=== PATIENT | female | born 1950 | race Caucasian/White ===

== ENCOUNTER → 2020-11-04 09:08 | Outpatient (CLI) | payer MEDICARE, SELFPAY ==
[2020-11-04 11:35] LABS: COVID19 -Nasal RAPID Negative (Negative)
== END ==
PROVIDERS: Referring Provider Physician Assistant; Visit Provider Physician Assistant
DX: Z01.812 Encounter for preprocedural laboratory examination (principal); Z20.822 Contact with and (suspected) exposure to COVID-19
CPT/HCPCS: 87635

== ENCOUNTER 2020-11-06 09:26 | Inpatient (IN) | payer MEDICARE, OTHER, SELFPAY ==
[2020-10-31 15:27] VITALS: BMI 28.1
[2020-11-06] VITALS (23 sets, daily range): BP systolic 110–147; BP diastolic 58–81; PULSE 61–84; RESP 8–22; TEMP 36.3–36.9; O2SAT 84–100; BMI 28.1
[2020-11-06] MEDS: LACTATED RINGERS 1,000 ML 42 ML IV ×2 (06:53→09:47)
--- NOTE | 2020-11-06 07:40 | PM.PREOP ---
Pre-operative Note COVID-19 COVID-19 status: Negative Result date/Date tested (Pos, Neg/Pending): 11/04/20 Interval Note History & Physical reviewed/Exam performed by Physician: Yes Changes to H&P: No
[2020-11-06] MEDS: CEFAZOLIN 1 GM VIAL 2 GM IV ×2 (07:50→16:19)
--- NOTE | 2020-11-06 08:33 | SUR.OPER ---
Prone on spine table, head in foam head support, padded chest and pelvic supports, gel pad at knees, lower legs supported by pillows; nipples, genitalia and toes free of pressure, arms secured on foam padded arm boards at <90 degrees abduction. Tape over blanket at thigh secured to table.
[2020-11-06] MEDS: BUPIVACAINE LIPOSOME 266 MG/20 ML VIAL INJ (08:39)
[2020-11-06] MEDS: BUPIVACAINE 0.25% (PF) VIAL 30 ML INJ (08:42)
[2020-11-06] MEDS: EPINEPHrine 1 MG/ML SUBCUT (08:43)
--- NOTE | 2020-11-06 12:15 | P.OP_ITS ---
Operative Date/Time/Diagnoses Date of procedure: 11/06/20 Time of procedure: 07:50 Pre-op diagnosis: 1. L3-4, L4-5, L5-S1 spinal stenosis 2. Hx of L5-S1 fusion with instrumentation 3. Lumbar scoliosis Post-op diagnosis: same Procedure & Clinicians Procedure: 1. L3-4, L4-5 posterolateral and posterior interbody fusion 2. L3-4, L4-5 posterior interbody cage placement 3. L5-S1 posterior non-segmental instrumentation removal 4. L5-S1 revision laminectomy with exploration of fusion 5. L3-4, L4-5, L5-S1 posterior segmental instrumentation with pedicle screw placement 6. L5-S1 posterolatearl fusion 7. [place] of bone marrow from iliac crest through a separate incision 8. Utilization of microsurgical technique and operating microscope Same procedure as scheduled: Yes Indications: Patient has been having chronic back pain and worsening lumbar radiculopathy. Patient had previously performed L5-S1 fusion surgery with retained hardware. Patient failed multiple conservative management with worsening pain weakness and numbness in her lower extremity. Patient has been having difficulty performing activity of daily living. After discussing risks benefits of treatment options, patient elected proceed with surgery. Surgeon: Dirk Enciso Cardiac Cath Lab Technologist: Jose L Kate Click Yes if Unassisted: No Anesthesia Type: General Operative Notes Closure Type: primary Specimen(s): none sent Prosthetic devices, grafts, tissues, transplants, or devices: Globus revolve screws, Rise cages Applied: catheter Estimated Blood Loss (mL): 200 Procedure in detail: Patient was seen in the preoperative area. Risks and benefits of the surgery was discussed with the patient. Informed consent was obtained from the patient and placed in the chart. Surgical site was marked. Patient was taken to the operative room. General anesthesia was administered. Prophylactic antibiotic was given to the patient less than 30 min before the incision was made. Patient was placed into a prone position on the Erik table. Patient's back was then prepped and draped in the sterile fashion. Time- out was performed at this time. Using patient's previous scar incision was made over theL3-4, L4-5, L5-S1 interval on the Left side. Fascia was incised in line with skin incision. Patient's previously placed hardware over the L5-S1 level was identified by dissecting down to the level the hardware using a Bovie and a Joiner. The locking caps which was removed using globus screwdriver. The locking saeed was then removed from the [place] of the pedicle screws using a Carolyn. The pedicle screws were then removed using the screwdriver. The screws were found to have good purchase. The Globus and MARS retractors was then placed into the wound and docked onto the L3 and L4 lamina using C-arm guidance. Using microsurgical technique and operating microscope a laminectomy facetectomy was performed by removing the L3 and L4 lamina and the L3-4 L4-5 facet. The disc space at L3-4 L4-5 level was identified next. And a total diskectomy was performed at L3-4 L4-5 level. The endplates were decorticated using a rasp and shaver. The total diskectomy and decortication was performed at L3-4 L4-5 level in order to to accomplish a L3-4 L4-5 fusion. The local bone from the laminectomy and facetectomy was saved for local bone grafting. After the total diskectomy and decortication was completed, Trifecta bone graft material was combined with local bone that was harvested earlier. At this time, a separate skin is incision was made over the iliac crest. A Jamshidi needle was inserted into the iliac crest through a separate skin incision. 5 cc of bone marrow aspiration was obtained through the separate skin incision using a Jamshidi needle from the iliac crest. The bone marrow aspiration was combined with local bone and the Trifecta bone grafting m aterial. The bone grafting material was placed into the L3-4, L4-5 interbody space along with a expandable cage. The cage was expanded to its maximum height using the torque limiting screwdriver. At this time a mirror image incision was made on the right side. The fascia was incised in line with the skin incision. Patient's previously placed hardware on the left side was then removed in the same fashion as it was on the right side. The hardware was also found to have good purchase. The fusion mass on the right side was exposed by performing a right-sided hemilaminectomy at L5-S1 level. The hemilaminectomy was performed using the Kerrison rongeur to undercut the lamina as well removing additional epidural scar tissue for purpose of decompressing the epidural space. The fusion mass was explored and was found have visible motion indicating pseudoarthrosis. Globus MARS retractor was inserted and docked onto the L3-4 L4-5 L5-S1 posterolateral gutter. Using the power drill, posterior-lateral decortication was performed at L3-4 L4-5 L5-S1 level until bleeding cortical bone was identified. The remaining bone grafting material was placed into the L3-4 L4-5 L5-S1 posterior lateral gutter he order to accomplish posterolateral fusion at the L3-4 L4-5 L5-S1 level. Using the double C-arm technique, pedicle screws were placed into the L3-L4 L5 and S1 pedicles bilaterally. The right-sided S1 screw was not placed since there was concern for potentially pulling out the right S1 screw due to patient's curvature. Patient's construct was stable at the end of the procedure after all hardware was placed. This was done by placing the Jamshidi needle into the pedicles, then placing the guidewires over the Jamshidi needle, and finally placing the cannulated screws over the guidewires bilaterally. After the pedicle screws were placed, 2 titanium rods was locked into the heads of the pedicle screws using locking caps and torque limiting screwdriver. After all the hardware was placed, and confirmed with AP and lateral C-arm imaging, the wound was then irrigated with sterile normal saline and packed with Ray-Fabrice gauze for 3 min to accomplish hemostasis. After the gauze was removed the deep fascia was closed with #1 Vicryl suture. The subcutaneous layer was closed with 2-0 Vicryl. The skin was closed with skin ama. Patient tolerated the procedure well. There were no complications. Complications: none Post-operative Condition: stable Disposition: PACU Plan for aftercare: Admit to inpatient hospital
--- NOTE | 2020-11-06 12:16 | DI.RAD.S_ITS ---
PROCEDURE: XR LUMBAR SPINE 2-3V INDICATIONS: L3-4, L4-5 TLIF TECHNIQUE: 3 intraoperative fluoroscopic views of the lumbar spine were acquired. COMPARISON: [facility], , XR LUMBAR SPINE 2 OR 3 VIEWS, 07/14/2020, 9:47. FINDINGS: Intraoperative fluoroscopic images of lumbar spine shows transpedicular fusion hardware extending from L3 through S1 levels with intervertebral spacer placement at L3-4 and L4-5 levels. IMPRESSION: Fluoro guidance was provided intraoperatively for lower lumbar spine fusion. Dictated by: Isiah Osullivan M.D. on 11/06/2020 at 13:06 Approved by: Isiah Osullivan M.D. on 11/06/2020 at 13:08
[2020-11-06] MEDS: fentaNYL 100 MCG/2 ML INJ IV ×2 (12:50→13:07)
[2020-11-06] MEDS: HYDROMORPHONE 2 MG INJ IV (12:58)
[2020-11-06] MEDS: OXYCODONE/ACETAMINOPHEN 5/325 TABLET 1 TAB PO (13:44)
--- NOTE | 2020-11-06 14:15 | SUR.PHASEI ---
Pt transfered in bed with ananya RN to 210. SBAr report at bedside to Lilian RN with dressing eval. at bedside. Bed in low position and locked. Call light in reach. Oxygen via NC at 3L.
--- NOTE | 2020-11-06 15:02 | PC.NURSE ---
Pt arrived to unit at 1355, settled in to room. Able to answer most questions appropriately. VSS, afebrile on 2 LNC initially,Pt able to roll side to side with assistance. +CMS normal sensation to BLE's and feet wiggling toes. at bedside. Pt denies wanting jello or crackers. LR at 100ml /hr. Incision with guaze dressing CDI. Some redness to B illiac crest blanchabe and per PACU nurse, much smaller since arriving to unit. RT demonstrating IS to patient, weaned to 1 Liter. Slightly lethargic but awakens easily.
[2020-11-06] MEDS: SODIUM CHLORIDE 0.9% 1,000 ML 100 ML IV (16:19)
--- NOTE | 2020-11-06 16:44 | PT-IP ANOTE ---
Attempted to see patient, per RN, pt not appropriate for PT at this time. High levels of confusion at the moment.
[2020-11-06] MEDS: levETIRAcetam 250 MG TABLET 500 MG PO (21:45)
[2020-11-06] MEDS: DOCUSATE 100 MG CAPSULE PO (21:45)
[2020-11-06] MEDS: SENNOSIDES 8.6 MG TABLET 17.2 MG PO (21:46)
--- NOTE | 2020-11-06 23:41 | PC.NURSE ---
A & O X1; impulsive; pt removed IV;trying to get out of bed; drsg change with [place] to lower back; RA=94%; Canas draining to gravity; Pt reports pain, and grimaces but this RN did not administer pain medication because patient fell asleep
[2020-11-07] VITALS (8 sets, daily range): BP systolic 107–120; BP diastolic 60–75; PULSE 79–94; RESP 14–18; TEMP 36.7–37.7; O2SAT 95–97
[2020-11-07] MEDS: CEFAZOLIN 1 GM VIAL 2 GM IV (00:03)
[2020-11-07] MEDS: OXYCODONE IR 5 MG TABLET 10 MG PO ×5 (00:34→19:27)
--- NOTE | 2020-11-07 02:14 | PC.NURSE ---
Patient found after shift change to be crawling out of bed. Insisted she had to use the bathroom but denied having to have BM and not able to understand that she had catheter. Had taken catheter securement device off leg. Not easily redirectable initially but eventually did lie back down. Now being monitored 1:1 due to impulsive behavior and forgetfulness. Was oriented except to day of month and her age. [place] bilaterally but only has hearing aid in left ear; states right hearing aid went missing prior to hospitalization. Breath sounds CTA with RA sat of 95%. HRR. Denied nausea. BT present but denied having passed flatus. Indwelling catheter is patent; urine is clear yellow. Able to move self in bed but is not adhering to back precautions. Has not yet been out of bed so gait not assessed. Dressing to back is intact with spots of shadow drainage. States she has tingling in both feet and feet feel cool to touch; good capillary refill. Wearing bilateral foot SCD's. Initially stated pain was 5/10 and declined pain meds but later stated pain up to 8/10 and was medicated with Oxycodone. Ice pack applied but patient would not leave it in place. Fall risk score is high and bed alarm is on as well as having continued 1:1 monitoring.
[2020-11-07] MEDS: hydrOXYzine pamoate 25 MG CAPSULE PO (03:45)
[2020-11-07] MEDS: SODIUM CHLORIDE 0.9% 1,000 ML 100 ML IV (05:00)
[2020-11-07 06:16] LABS: Hematocrit 30.2 % (36-46); Hemoglobin 10.1 g/dL (12.0-16.0)
[2020-11-07] MEDS: ACETAMINOPHEN 325 MG TABLET 650 MG PO ×2 (08:52→14:30)
[2020-11-07] MEDS: DOCUSATE 100 MG CAPSULE PO ×2 (08:53→21:16)
[2020-11-07] MEDS: levETIRAcetam 250 MG TABLET 500 MG PO ×2 (08:54→21:16)
[2020-11-07] MEDS: MULTIVITAMIN 1 TABLET 1 TAB PO (08:54)
[2020-11-07] MEDS: GABAPENTIN 300 MG CAPSULE PO (08:54)
[2020-11-07] MEDS: FUROSEMIDE 40 MG TABLET PO (08:56)
--- NOTE | 2020-11-07 10:40 | PT.IIE ---
Current Diagnoses Other secondary scoliosis, lumbar region (11/06/20) Spondylolisthesis, lumbar region (11/06/20) Spinal stenosis, lumbar region without neurogenic claudication (11/06/20) Arthrodesis status (11/06/20) Surgery Performed Operation Date: 11/06/20 07:45 Actual Procedures p L2-3,L3-4,L4-5 TLIF,L5-S1 lumbar HWR,exploration of fusion,repeat laminectomy,reinsertion of hardware(Not Applicable) - Dirk Enciso MD Medical History (Last Reviewed 11/07/20 @ 11:56 by Allan Herrera PA-C) Acid reflux Anxiety Arthritis Asthma Chest pain Depression DJD (degenerative joint disease) DVT (deep venous thrombosis) Fall from ground level (10/26/20) Hearing impaired Hypokalemia Irregular heartbeat Kidney stones Lung cancer (~2015) Osteoporosis Seizures Spinal stenosis Physical Therapy Inpatient Evaluation/Re-Eval M1 PT/OT-IP Prior Functional Status Start: 11/07/20 12:21 Freq: NEEDED Status: Active Protocol: Document 11/07/20 10:40 AB (Rec: 11/07/20 12:34 AB [id number]) Medical Review Prior Functional Status Medical History Reviewed Yes Communication able to make needs known but with confusion Mobility and Gait spouse stated that pt is modified independent with all mobilities and ambulation without AD but occasionally uses walker with 4 wheels(FWW into 4WW) depending on pain Social History Household Members spouse Living Arrangements Apartment/Condo Number of Floors (Floors) 3 or More Floors Number of Stairs To Enter/Railing? no steps to enter 4 steps with B rails to get to living room /dining area + 10 steps B rails to get to bedroom level Home Environment High Toilet,Walk in Shower Home Equipment Four Wheel Walker,Shower Seat with Backrest Additional Social History Comment pt has a FWW that was made into a 4WW and spouse stated that he can switch the legs back to be a FWW again M2 PT-IP Current Condition Start: 11/07/20 12:21 Freq: NEEDED Status: Active Protocol: Document 11/07/20 10:40 AB (Rec: 11/07/20 12:34 AB [email or web address]) Physical Therapy Current Condition Current Condition Evaluation Date 11/07/20 Treatment Diagnosis s/p L3-S1 fusion; difficulty in walking Onset Date 11/06/20 Precautions Lumbar Precautions Log Roll,No Twisting,Limit Bending,Lifting Restriction of 10 lbs,Gait Belt above Incisional Area Other Precautions falls M3 PT-IP Subjective Start: 11/07/20 12:21 Freq: NEEDED Status: Active Protocol: Document 11/07/20 10:40 AB (Rec: 11/07/20 12:34 AB [id number]) Subjective Physical Therapy Visit Type Type Initial Evaluation Visit Start Time 10:40 Visit Stop Time 11:20 Total Visit Minutes 40 Number of IT AUDITOR Visits 0 Physical Therapy Visit Comments Patient Comments agreeable to do PT; spouse in room with pt Therapy Pain Assessment Pain When Pain Assessed At Rest Pain Present Pain Present Pain Reported Location Back Intensity 4 Scale Used Numeric (0 - 10) Pain Management Techniques Apply Cold,Modification of Treatment,Re-positioning, Timing of Activity with Medications M4 PT-IP Mobility and Gait Start: 11/07/20 12:21 Freq: NEEDED Status: Active Protocol: Document 11/07/20 10:40 AB (Rec: 11/07/20 12:34 AB [email or web address]) PT-Bed Mobility Assessment Rolling Type of Rolling Log Rolling Level of Assist Maximal Assistance Supine to Sit Supine to Sit Maximum Assistance PT-Transfer Assessment Sit to and From Stand Sit to and from Stand Moderate Assistance,1 Person Assistance,Use of Upper Extremities Equipment Transfer Assistive Device Gait Belt,Front Wheeled Walker Orthotic/Prosthetic Devices or Brace: No Transfers Transfer Destination Chair Transfer Technique ambulated using FWW Transfer Ability Level of Assist Moderate Assistance,1 Person Assistance,Use of Upper Extremities Comments Mobility Comments educated pt regarding back precautions and log roll bed mobility. spouse in room with pt. pt completed supine to sit log roll max A and max cues x 3 attempts. pt with difficulty following directions and c/o increase back pain. pt was able to sit on EOB CGA. completed sit to stand mod A and cues and ambulated to the chair using FWW mod A. agreed to ambulate again after resting requiring min to mod A using FWW ~ 30 ft. pt agreed to sit up on chair. positioned on chair. call light and table placed within reach. chair alarm on. set up 1pm caregiver training later today. Gait Assessment Gait Gait Assistance Required: Minimum Assistance,Maximum Assistance Distance (Feet) 30 Able to Maintain Weight Bearing Status Yes During Gait Assistive Devices Assistive Device Gait Belt,Front Wheeled Walker Orthotic/Prosthetic Devices or Brace: Yes Gait Deviations General Gait Pattern Antalgic,Decreased Feet Clearance Factors Limiting Gait Function Factors Limiting Gait Function Decreased Activity Tolerance, Decreased Strength,Difficulty Following Directions,Limited Range of Motion,Pain,Poor Balance,Poor Safety Awareness PT-Balance Assessment Sitting Balance and Reactions Static Sitting Balance Ability Good Dynamic Sitting Balance Ability Fair Standing Balance and Reactions Static Standing Balance Ability Fair Dynamic Standing Balance Ability Fair Device Used FWW M5 PT-IP Objective Assessments Start: 11/07/20 12:21 Freq: NEEDED Status: Active Protocol: Document 11/07/20 10:40 AB (Rec: 11/07/20 12:34 AB [email or web address]) Orientation Orientation/Cognition Level of Alertness Alert Orientation Name,Place,Situation Safety Awareness Decreased Safety Awareness Memory Description Short Term Impaired Gross Range of Motion Lower Extremity ROM Assessment Within Functional Limits Strength Lower Extremity Strength Hip 3+/5 Knee 3+/5 Muscle Tone Muscle Tone WNL Yes M6 PT-IP Treatment Start: 11/07/20 12:21 Freq: NEEDED Status: Active Protocol: Document 11/07/20 10:40 AB (Rec: 11/07/20 12:34 AB [email or web address]) Physical Therapy Treatment Education Education Provided Precautions,Weight Bearing Status,Post-Op Packet,Safety M7 PT-IP Assessment and Plan Start: 11/07/20 12:21 Freq: NEEDED Status: Active Protocol: Document 11/07/20 10:40 AB (Rec: 11/07/20 12:34 AB [email or web address]) PT Summary Assessment and Plan Potential Rehabilitation Potential Good Status of Condition at Evaluation Evolving Summary Impairments Pain,ROM,Strength,Balance, Coordination,Sensation,Tone, Cognition,Bed Mobility, Transfers,Gait,Activity Tolerance Assessment Summary pt requiring max A with bed mobility and min to mod with ambulation using FWW. pt with slight confusion with difficulty following directions affecting mobility and safety awareness. caregiver trianing set up for 1pm later today. will continue to assess progress. Goals Bed Mobility Goal Standby Assistance Transfer Goal Standby Assistance,Front Wheeled Walker Gait Goal Standby Assistance,Front Wheel Walker Gait Distance 150 Other Goals up/down 14 steps B rails SBA Days to Meet Goals 5 Frequency of Treatment Frequency Of Treatment Twice a Day Treatment Plan Physical Therapy Treatment Plan Bed Mobility Training,Transfer Training,Gait Training, Therapeutic Exercise,Balance Retraining,Post Op Education, Discharge Planning,Hot or Cold Pack,Neuromuscular Re-ed, Coordination Retraining,Manual Therapy Other Recommendations and Next Treatment caregiver training 1 pm 11/07 Focus Precautions Lumbar Precautions Log Roll,No Twisting,Limit Bending,Lifting Restriction of 10 lbs,Gait Belt above Incisional Area Recommendations To Nursing Amount of Assist Needed 1 Person Assist Discharge Recommendations PT Discharge Recommendations Home with 02/12 Assist Available,Home Health Transportation Needs at Discharge Private Vehicle
--- NOTE | 2020-11-07 10:45 | CM.DANOTE ---
DCP: Case received, EMR reviewed and met with patient. , Aquiles, was at bedside. Introduced self and role. Was able to obtain information from patient and spouse regarding her baseline activity level at home prior to her surgery. DCP assessment completed with information currently available. Patient is a 70 year old female who admitted yesterday morning to the care of the orthopedic team. PCP: Dr. Ritter at [facility]. Payer: confirmed: Medicare/[employer]. Patient came to the hospital via private vehicle for a surgical procedure. She had back surgery which consisted of L3-4, L4-5 posteolateral and posterior interbody fusion. Patient has history of spinal stenosis as well as scoliosis of the lumbar region. Met with patient and , Binh, in the room. She was laying in bed, somewhat flat effect, but spouse indicated that she is hard of hearing. Confirmed that she and spouse reside in [place]. Patient does not drive, and uses a FWW at home. They have 14 stairs that she needs to navigate when she goes home, but spouse indicated. they really want her home. Patient did answer some questions, but had to repeat, as she is hard of hearing, and at times, had to look at her to help answer questions. Asked patient if she does any meal prep at home, and she indicated that her spouse does all of the cooking, and some resident caregiver. They do have some children, one is in [place], other lives in [place]. Patient has not yet worked with P.T, and in addition, will need stair training. P: DCP to continue to follow, and will see how she does with P.T. Mila Mueller RN/Credit Support Counselor
[2020-11-07] MEDS: SERTRALINE 50 MG TABLET PO (11:47)
--- NOTE | 2020-11-07 11:54 | PM.PNPO.1 ---
Subjective Subjective Date Patient Seen: 11/07/20 Time Patient Seen: 07:35 Interval history: Patient's pain is moderate. Denies fever or chills. No shortness of breath or chest pain. She is otherwise without complaints this morning. Exam Vital Signs (past 8 hours): - 11/07/20 04:39 11/07/20 09:00 Temperature 98.3 F 99.0 F Pulse Rate 87 83 Respiratory Rate 14 16 Blood Pressure 116/68 117/62 Oxygen Delivery Method Room Air Oxygen Flow Rate 0 Narrative Exam Narrative: Pleasant 70-year-old female resting comfortably in bed in no apparent distress. There is a moderate amount SS drainage and the dressing is rolled up. Sensation grossly intact bilateral lower extremities. Neurovascular status is otherwise intact bilateral lower extremities. Eyes General: appearance normal, both eyes and all related structures Objective Labs Result Diagrams: 11/07/20 05:49 Labs: Laboratory Results - last 24 hr 11/07/20 05:49 Hgb 10.1 L Hct 30.2 L PFSH Medical History Acid reflux Anxiety Arthritis Asthma Chest pain Depression DJD (degenerative joint disease) DVT (deep venous thrombosis) Fall from ground level (10/26/20) Hearing impaired Hypokalemia Irregular heartbeat Kidney stones Lung cancer (~2015) Osteoporosis Seizures Spinal stenosis Surgical History History of arthroplasty of left shoulder (2017) History of arthroplasty of right knee (01/11/20) History of removal of Port-a-Cath Hx of craniotomy (~2015) Hx of lumbosacral spine surgery (2002) Hx of splenectomy (2013) Social History household members: spouse and children Smoking Status: Current every day smoker alcohol intake: never Assessment & Plan Post-op Postoperative Procedures: Procedures Operation Date: 11/06/20 07:45 Actual Procedure Side Surgeon p L2-3,L3-4,L4-5 TLIF,L5-S1 lumbar HWR,exploration of fusion,repeat laminectomy,reinsertion of hardware Not Applicable Dirk Enciso MD Postoperative day: 1 Postoperative status: other (Stable) Postoperative status narrative: Patient progressing as expected status post lumbar fusion. Mobilize with physical therapy. Continue work on pain control. Limit bending, twisting, lifting. Canas catheter and placed and will be DC. Physical therapy attempted treatment yesterday evening however patient was determined to be confused and not appropriate for PT at this time. She has not received PT yet this morning. Disposition likely 1-2 days home versus assisted facility. Postoperative plan: routine post-op care Time Spent With Patient Time with patient: less than 15 minutes Quality VTE Deep Vein Thrombosis/Pulmonary Embolism Present on Admission: No
--- NOTE | 2020-11-07 13:20 | PT.IPTN ---
Current Diagnoses Other secondary scoliosis, lumbar region (11/06/20) Spondylolisthesis, lumbar region (11/06/20) Spinal stenosis, lumbar region without neurogenic claudication (11/06/20) Arthrodesis status (11/06/20) Surgery Performed Operation Date: 11/06/20 07:45 Actual Procedures p L2-3,L3-4,L4-5 TLIF,L5-S1 lumbar HWR,exploration of fusion,repeat laminectomy,reinsertion of hardware(Not Applicable) - Dirk Enciso MD Physical Therapy Treatment Note M2 PT-IP Current Condition Start: 11/07/20 12:21 Freq: NEEDED Status: Active Protocol: Document 11/07/20 10:40 AB (Rec: 11/07/20 12:34 AB [email or web address]) Physical Therapy Current Condition Current Condition Evaluation Date 11/07/20 Treatment Diagnosis s/p L3-S1 fusion; difficulty in walking Onset Date 11/06/20 Precautions Lumbar Precautions Log Roll,No Twisting,Limit Bending,Lifting Restriction of 10 lbs,Gait Belt above Incisional Area Other Precautions falls M3 PT-IP Subjective Start: 11/07/20 12:21 Freq: NEEDED Status: Active Protocol: Document 11/07/20 13:20 AB (Rec: 11/07/20 17:01 AB [email or web address]) Subjective Physical Therapy Visit Type Type Treatment Note Visit Start Time 13:20 Visit Stop Time 13:45 Total Visit Minutes 25 Number of MANAGED CARE ANALYST Visits 0 Physical Therapy Visit Comments Patient Comments pt is agreeable to do PT. spouse in room with pt Therapy Pain Assessment Pain When Pain Assessed At Rest Pain Present Pain Present Pain Reported Location Back Scale Used pain scale not stated Pain Management Techniques Modification of Treatment,Re- positioning,Timing of Activity with Medications M4 PT-IP Mobility and Gait Start: 11/07/20 12:21 Freq: NEEDED Status: Active Protocol: Document 11/07/20 13:20 AB (Rec: 11/07/20 17:01 AB [id number]) PT-Bed Mobility Assessment Rolling Type of Rolling Log Rolling Level of Assist Maximal Assistance Supine to Sit Supine to Sit Moderate Assistance,Maximum Assistance,1 Person Assistance Sit to Supine Sit to Supine Moderate Assistance,Maximum Assistance,1 Person Assistance PT-Transfer Assessment Sit to and From Stand Sit to and from Stand Moderate Assistance,1 Person Assistance,Use of Upper Extremities Equipment Transfer Assistive Device Gait Belt,Front Wheeled Walker Orthotic/Prosthetic Devices or Brace: No Comments Mobility Comments caregiver training conducted. demonstrated to spouse on how to assist pt with bed mobility and pt completed with PT assisting: log roll max A, supine to sit mod to max A. completed sit to supine mod to max A. requires max cues with all tasks. spouse assisted pt with supine to sit log roll and was able to assist pt but with PT cueing on how to assist. pt was able to sit on EOB CGA. completed sit to stand mod A with spouse assisting and ambulated in room using FWW ~ 20 ft min A with spouse assisting. pt c/o increase back pain and wants to go back to bed. completed sit to supine with spouse assisting mod tomax A and max cues. positioned pt in bed. call light and table placed within reach. Gait Assessment Gait Gait Assistance Required: Minimum Assistance,1 Person Assist Distance (Feet) 20 Able to Maintain Weight Bearing Status Yes During Gait Assistive Devices Assistive Device Gait Belt,Front Wheeled Walker Orthotic/Prosthetic Devices or Brace: No Gait Deviations General Gait Pattern Antalgic,Decreased Stride Length,Decreased Feet Clearance Factors Limiting Gait Function Factors Limiting Gait Function Decreased Activity Tolerance, Decreased Strength,Difficulty Following Directions,Limited Range of Motion,Pain,Poor Balance,Poor Safety Awareness Comments Gait Comments pls refer to mobility section for details M5 PT-IP Objective Assessments Start: 11/07/20 12:21 Freq: NEEDED Status: Active Protocol: Document 11/07/20 10:40 AB (Rec: 11/07/20 12:34 [facility]) Orientation Orientation/Cognition Level of Alertness Alert Orientation Name,Place,Situation Safety Awareness Decreased Safety Awareness Memory Description Short Term Impaired Gross Range of Motion Lower Extremity ROM Assessment Within Functional Limits Strength Lower Extremity Strength Hip 3+/5 Knee 3+/5 Muscle Tone Muscle Tone WNL Yes M6 PT-IP Treatment Start: 11/07/20 12:21 Freq: NEEDED Status: Active Protocol: Document 11/07/20 13:20 AB (Rec: 11/07/20 17:01 AB [email or web address]) Physical Therapy Treatment Education Education Provided Safety M7 PT-IP Assessment and Plan Start: 11/07/20 12:21 Freq: NEEDED Status: Active Protocol: Document 11/07/20 13:20 AB (Rec: 11/07/20 17:01 AB [email or web address]) PT Summary Assessment and Plan Potential Rehabilitation Potential Good Summary Impairments Pain,ROM,Strength,Balance, Coordination,Sensation, Cognition,Bed Mobility, Transfers,Gait,Activity Tolerance Progress Towards Goals Slow Progress due to Pain,Slow Progress due to Activity Tolerance,Slow Progress - Other Assessment Summary caregiver training conducted but requires further training. set up caregiver training tomorrow at 10 am. pt also needs to complete stair climbing training prior to d/c . will continue to assess progress. Goals Bed Mobility Goal Standby Assistance Transfer Goal Standby Assistance,Front Wheeled Walker Gait Goal Standby Assistance,Front Wheel Walker Gait Distance 150 Other Goals up/down 14 steps B rails SBA Days to Meet Goals 5 Frequency of Treatment Frequency Of Treatment Twice a Day Treatment Plan Physical Therapy Treatment Plan Bed Mobility Training,Transfer Training,Gait Training, Therapeutic Exercise,Balance Retraining,Post Op Education, Discharge Planning,Hot or Cold Pack,Neuromuscular Re-ed, Coordination Retraining,Manual Therapy Other Recommendations and Next Treatment caregiver training 11/08 @ [facility] 10 am Precautions Lumbar Precautions Log Roll,No Twisting,Limit Bending,Lifting Restriction of 10 lbs,Gait Belt above Incisional Area Recommendations To Nursing Amount of Assist Needed 1 Person Assist Discharge Recommendations PT Discharge Recommendations Home with / Assist Available,Home Health Transportation Needs at Discharge Private Vehicle
--- NOTE | 2020-11-07 14:05 | OT.IPNOTE ---
Attempted to see pt for OT eval . Pt states in too much pain 12/19 and not wanting to get up at this time, Nursing notified of pt's request for pain medication. Pt states will to do OT eval tomorrow.
[2020-11-07] MEDS: ATORVASTATIN 20 MG TABLET 40 MG PO (17:20)
[2020-11-07] MEDS: SENNOSIDES 8.6 MG TABLET 17.2 MG PO (21:16)
--- NOTE | 2020-11-07 22:25 | PC.NURSE ---
VSS. A&Ox1. Patient is very confused, disoriented, and requires frequent reinforcement to use call light and not get up on her own. Cannot articulate pain level when asked how much pain she is in on a scale of 1-10, she simply states she hurts. Patient forgets she had surgery and requires constant reminders of why she is here in the hospital and to not twist or bend over. She was given 10 mg of PRN Oxycodone for her pain. This check writer found this patient multiple times after chair or bed alarm went off and patient had already gotten up on her own. She does not use her call light even though its use has been encouraged every time this check writer goes into her room. Bed alarm and chair alarm on at all times. Bed low, call light within reach.
[2020-11-08] VITALS (7 sets, daily range): BP systolic 116–152; BP diastolic 53–86; PULSE 70–90; RESP 15–18; TEMP 36.2–37.4; O2SAT 93–98
[2020-11-08] MEDS: OXYCODONE IR 5 MG TABLET 10 MG PO ×6 (01:08→21:59)
--- NOTE | 2020-11-08 01:35 | PC.NURSE ---
Patient is alert and mostly oriented; did not know day of month or year. Affect is flat. Can be forgetful and impulsive although did use call light this time to call for staff assistance. [place] with hearing aid only in left ear. Inner lower lip with open areas and is swollen and red. Breath sounds CTA with RA sat of 93%. HRR w/elevated BP of 152/71. Only dressing on back is a Tegaderm which was peeling up so replaced with a Coversite dressing. Incisions are well approximated with surrounding bruising. Steri strip to right upper corner of dressing intact. Complains of 9/10 shooting pain in back so medicated with Oxycodone, repositioned and ice pack applied. Doing better with log rolling and is able to turn herself. BT present and states she is passing flatus. Denies dysuria or frequency but does complain of urgency. Is up to bathroom/BSC with 1 assist + walker. Declined to have foot SCD's applied at this time so reminded to ankle wave. Does have some tingling in right foot. Fall risk score is high and bed alarm is activated.
--- NOTE | 2020-11-08 07:39 | P.PN_ITS ---
Subjective Subjective Date Patient Seen: 11/08/20 Time Patient Seen: 07:39 Interval history: Patient states she is in moderate discomfort at rest. At this time she denies fever, chills, nausea, chest pain, or shortness of breath. She reports good sensation throughout the bilateral lower extremities. Exam Vital Signs (past 8 hours): - 11/08/20 01:14 11/08/20 03:53 Temperature 99.3 F 98.5 F Pulse Rate 88 87 Respiratory Rate 18 18 Blood Pressure 152/71 H 128/68 Pulse Oximetry 93 96 Oxygen Delivery Method Room Air Oxygen Flow Rate 0 Narrative Exam Narrative: 70-year-old female postop day 2. Patient resting comfortably in bed, is in no acute distress, is alert and oriented x3. Skin is warm and dry, and the skin surrounding incision site is free of erythema, warmth, induration, or discharge. Dressing over the incision site is clean, dry, and intact. Good sensation appreciated throughout the bilateral lower extremities to light touch. Hip flexion performed bilaterally without difficulty or discomfort. Ankle dorsiflexion, plantar flexion, eversion, inversion performed bilaterally without difficulty or discomfort. Mild tenderness to palpation throughout the right k nee. DP pulses palpated bilaterally. Calves are soft and nontender, negative Homans sign. No other signs of DVT appreciated. Const General: cooperative, healthy appearing and comfortable Resp Effort & Inspection: normal respiratory effort and able to speak in complete sentences Skin General: no rashes or lesions noted Objective Labs Result Diagrams: 11/07/20 05:49 [facility] Medical History Acid reflux Anxiety Arthritis Asthma Chest pain Depression DJD (degenerative joint disease) DVT (deep venous thrombosis) Fall from ground level (10/26/20) Hearing impaired Hypokalemia Irregular heartbeat Kidney stones Lung cancer (~2015) Osteoporosis Seizures Spinal stenosis Surgical History History of arthroplasty of left shoulder (2018) History of arthroplasty of right knee (01/11/20) History of removal of Port-a-Cath Hx of craniotomy (~2015) Hx of lumbosacral spine surgery (2002) Hx of splenectomy (2013) Social History household members: spouse and children Smoking Status: Current every day smoker alcohol intake: never Assessment & Plan Post-op Postoperative Procedures: Procedures Operation Date: 11/06/20 07:45 Actual Procedure Side Surgeon p L2-3,L3-4,L4-5 TLIF,L5-S1 lumbar HWR,exploration of fusion,repeat laminectomy,reinsertion of hardware Not Applicable Dirk Enciso MD Postoperative day: 2 Postoperative plan: ambulate Postoperative plan narrative: Patient is to continue working on ambulation with the assistance of a front wheel walker with physical therapy. Current pain management regimen is to be continued. Discharge home versus transfer 2 intermediate facility in 1-2 days. Quality VTE Deep Vein Thrombosis/Pulmonary Embolism Present on Admission: No
[2020-11-08] MEDS: levETIRAcetam 250 MG TABLET 500 MG PO ×2 (09:33→20:15)
[2020-11-08] MEDS: FUROSEMIDE 40 MG TABLET PO (09:34)
[2020-11-08] MEDS: DOCUSATE 100 MG CAPSULE PO ×2 (09:34→20:15)
[2020-11-08] MEDS: GABAPENTIN 300 MG CAPSULE PO (09:34)
[2020-11-08] MEDS: hydrOXYzine pamoate 25 MG CAPSULE PO ×2 (09:37→23:28)
[2020-11-08] MEDS: MULTIVITAMIN 1 TABLET 1 TAB PO (09:37)
--- NOTE | 2020-11-08 09:41 | PT.IPTN ---
Current Diagnoses Other secondary scoliosis, lumbar region (11/06/20) Spondylolisthesis, lumbar region (11/06/20) Spinal stenosis, lumbar region without neurogenic claudication (11/06/20) Arthrodesis status (11/06/20) Surgery Performed Operation Date: 11/06/20 07:45 Actual Procedures p L2-3,L3-4,L4-5 TLIF,L5-S1 lumbar HWR,exploration of fusion,repeat laminectomy,reinsertion of hardware(Not Applicable) - Dirk Enciso MD Physical Therapy Treatment Note M2 PT-IP Current Condition Start: 11/07/20 12:21 Freq: NEEDED Status: Active Protocol: Document 11/07/20 10:40 AB (Rec: 11/07/20 12:34 AB [email or web address]) Physical Therapy Current Condition Current Condition Evaluation Date 11/07/20 Treatment Diagnosis s/p L3-S1 fusion; difficulty in walking Onset Date 11/06/20 Precautions Lumbar Precautions Log Roll,No Twisting,Limit Bending,Lifting Restriction of 10 lbs,Gait Belt above Incisional Area Other Precautions falls M3 PT-IP Subjective Start: 11/07/20 12:21 Freq: NEEDED Status: Active Protocol: Document 11/08/20 09:41 AB (Rec: 11/08/20 12:46 AB [email or web address]) Subjective Physical Therapy Visit Type Type Treatment Note Visit Start Time 09:41 Visit Stop Time 10:20 Total Visit Minutes 41 Number of BODY SHOP MANAGER Visits 0 Physical Therapy Visit Comments Patient Comments spouse in room with pt. pt c/ o pain on back Therapy Pain Assessment Pain When Pain Assessed At Rest Pain Present Pain Present Pain Reported Location Back Scale Used pain scale not stated Pain Management Techniques Distraction,Modification of Treatment,Re-positioning, Timing of Activity with Medications M4 PT-IP Mobility and Gait Start: 11/07/20 12:21 Freq: NEEDED Status: Active Protocol: Document 11/08/20 09:41 AB (Rec: 11/08/20 12:46 AB [id number]) PT-Bed Mobility Assessment Supine to Sit Supine to Sit Maximum Assistance,1 Person Assistance Sit to Supine Sit to Supine Maximum Assistance,1 Person Assistance PT-Transfer Assessment Sit to and From Stand Sit to and from Stand Moderate Assistance,1 Person Assistance,Use of Upper Extremities Equipment Transfer Assistive Device Gait Belt,Front Wheeled Walker Orthotic/Prosthetic Devices or Brace: No Comments Mobility Comments pt supine in bed. spouse in room for caregiver training. pt c/o back pain. completed supine to sit with spouse assisting max A and cues. PT has to instruct spouse on how to instruct and assist pt. pt completed sit to stand mod A and cues and ambulated ~ 2 ft using FWW mod A and stated that she has increase pain and has to lay back down. pt went back to bed. completed sit to supine max a and cues. spouse was not able to instruct and forgot how to do log roll sit to supine with pt and PT has to intervene. PT assisted pt and demonstrated to spouse on how to do log roll sit to supine. positioned pt in bed. call light and table placed within reach. informed pt and spouse regarding d/c recommendation and safety. informed pt and spouse that pt is not able to tolerate much activity and needs to be able to do more and be able to safely go home. spouse agreed. informed case liner regarding SNF recommendation. Gait Assessment Gait Gait Assistance Required: Minimum Assistance,Moderate Assistance,1 Person Assist Distance (Feet) 4 Able to Maintain Weight Bearing Status Yes During Gait Assistive Devices Assistive Device Gait Belt,Front Wheeled Walker Orthotic/Prosthetic Devices or Brace: No Gait Deviations General Gait Pattern Decreased Stride Length, Decreased Feet Clearance Factors Limiting Gait Function Factors Limiting Gait Function Decreased Activity Tolerance, Decreased Strength,Difficulty Following Directions,Limited Range of Motion,Pain,Poor Balance,Poor Safety Awareness M5 PT-IP Objective Assessments Start: 11/07/20 12:21 Freq: NEEDED Status: Active Protocol: Document 11/07/20 10:40 AB (Rec: 11/07/20 12:34 AB [email or web address]) Orientation Orientation/Cognition Level of Alertness Alert Orientation Name,Place,Situation Safety Awareness Decreased Safety Awareness Memory Description Short Term Impaired Gross Range of Motion Lower Extremity ROM Assessment Within Functional Limits Strength Lower Extremity Strength Hip 3+/5 Knee 3+/5 Muscle Tone Muscle Tone WNL Yes M6 PT-IP Treatment Start: 11/07/20 12:21 Freq: NEEDED Status: Active Protocol: Document 11/08/20 09:41 AB (Rec: 11/08/20 12:46 AB [email or web address]) Physical Therapy Treatment Education Education Provided Precautions,Safety M7 PT-IP Assessment and Plan Start: 11/07/20 12:21 Freq: NEEDED Status: Active Protocol: Document 11/08/20 09:41 AB (Rec: 11/08/20 12:46 AB [email or web address]) PT Summary Assessment and Plan Potential Rehabilitation Potential Fair Summary Impairments Pain,ROM,Strength,Balance, Coordination,Sensation,Tone, Cognition,Bed Mobility, Transfers,Gait,Activity Tolerance Progress Towards Goals Slow Progress due to Pain,Slow Progress due to Activity Tolerance Assessment Summary caregiver training conducted but needs further training due to pt's decrease activity tolerance limiting training that can be conducted. pt requiring max A with bed mobility, mod A for sit to stand and was only able to ambulate ~ 4 ft using FWW mod A. pt needs to be able to tolerate and ambulate farther to be functional and safely go home with spouse. Pt. will require SNF rehab at this time . will continue to assess progress. Goals Bed Mobility Goal Standby Assistance Transfer Goal Standby Assistance,Front Wheeled Walker Gait Goal Standby Assistance,Front Wheel Walker Gait Distance 150 Other Goals up/down 14 steps B rails SBA Days to Meet Goals 5 Frequency of Treatment Frequency Of Treatment Twice a Day Treatment Plan Physical Therapy Treatment Plan Bed Mobility Training,Transfer Training,Gait Training, Therapeutic Exercise,Balance Retraining,Post Op Education, Discharge Planning,Hot or Cold Pack,Neuromuscular Re-ed, Coordination Retraining,Manual Therapy Precautions Lumbar Precautions Log Roll,No Twisting,Limit Bending,Lifting Restriction of 10 lbs,Gait Belt above Incisional Area Recommendations To Nursing Amount of Assist Needed 1 Person Assist Discharge Recommendations PT Discharge Recommendations SNF Rehab Transportation Needs at Discharge Wheelchair/Cabulance
[2020-11-08] MEDS: ACETAMINOPHEN 325 MG TABLET 650 MG PO ×2 (12:29→23:29)
[2020-11-08] MEDS: SERTRALINE 50 MG TABLET PO (12:34)
--- NOTE | 2020-11-08 13:05 | OT.IP.EVAL ---
Current Diagnoses Other secondary scoliosis, lumbar region (11/06/20) Spondylolisthesis, lumbar region (11/06/20) Spinal stenosis, lumbar region without neurogenic claudication (11/06/20) Arthrodesis status (11/06/20) Surgery Performed Operation Date: 11/06/20 07:45 Actual Procedures p L2-3,L3-4,L4-5 TLIF,L5-S1 lumbar HWR,exploration of fusion,repeat laminectomy,reinsertion of hardware(Not Applicable) - Dirk Enciso MD Past Medical History (Last Reviewed 11/08/20 @ 07:40 by Jose L Kate PA-C) Acid reflux Anxiety Arthritis Asthma Chest pain Depression DJD (degenerative joint disease) DVT (deep venous thrombosis) Fall from ground level (10/26/20) Hearing impaired History of arthroplasty of left shoulder (2017) History of arthroplasty of right knee (01/11/20) History of removal of Port-a-Cath Hx of craniotomy (~2015) Hx of lumbosacral spine surgery (2002) Hx of splenectomy (2013) Hypokalemia Irregular heartbeat Kidney stones Lung cancer (~2015) Osteoporosis Seizures Spinal stenosis Surgical History (Last Reviewed 11/08/20 @ 07:40 by Jose L Kate PA-C) History of arthroplasty of left shoulder (2017) History of arthroplasty of right knee (01/11/20) History of removal of Port-a-Cath Hx of craniotomy (~2015) Hx of lumbosacral spine surgery (2002) Hx of splenectomy (2013) Occupational Therapy Inpatient Evaluation/Re-Eval M1 PT/OT-IP Prior Functional Status Start: 11/07/20 12:21 Freq: NEEDED Status: Active Protocol: Document 11/08/20 12:36 [facility] (Rec: 11/08/20 14:36 [facility] [id number]) Medical Review Prior Functional Status Medical History Reviewed Yes Communication able to make needs known but with confusion Mobility and Gait spouse stated that pt is modified independent with all mobilities and ambulation without AD but occasionally uses walker with 4 wheels(FWW into 4WW) depending on pain Activities of Daily Living and IADL's Pt needing increased time to do ADl needs, her states present for showering and assist for all IADl needs. Pt's states that she has decreased memory and that he does all the bills and medications for the pt. Social History Household Members spouse,children Living Arrangements Apartment/Condo Number of Floors (Floors) 3 or More Floors Number of Stairs To Enter/Railing? No step to enter, 4 steps with bilateral rails to living room , 10 steps with bilateral rails to bed room. Home Equipment Four Wheel Walker,Shower Seat with Backrest Additional Social History Comment pt has a FWW that was made into a 4WW and spouse stated that he can switch the legs back to be a FWW again M2 OT-IP Current Condition Start: 11/08/20 13:59 Freq: Status: Active Protocol: Document 11/08/20 12:36 [facility] (Rec: 11/08/20 14:36 [facility] [id number]) Occupational Therapy Current Condition Current Condition Evaluation Date 11/08/20 Treatment Diagnosis S/p L3-S1 TLIF, decreased mobility Diagnosis Onset Date 11/06/20 Post Operative Precautions Lumbar Precautions Log Roll,No Twisting,Limit Bending,Lifting Restriction of 10 lbs,Gait Belt above Incisional Area M3 OT- IP Subjective and Pain Start: 11/08/20 13:59 Freq: Status: Active Protocol: Document 11/08/20 12:36 [facility] (Rec: 11/08/20 14:36 [facility] [id number]) OT- Subjective Occupational Therapy Visit Type Type Initial Evaluation Visit Start Time 12:36 Visit Stop Time 13:05 Total Visit Minutes 29 Occupational Therapy Visit Comments Patient Comments Pt in the bathroom when therapist came to see the pt. Pt's in the room. Patient/Caregiver Goals Pt's feels best for his to go to skilled rehab prior to coming home. Pt states would like to go home. OT Pain Assessment Pain When Pain Assessed During Mobility Pain Present Pain Present Pain Reported Location Back Intensity 8 Scale Used Numeric (0 - 10) M4 OT- IP ADL's Start: 11/08/20 13:59 Freq: Status: Active Protocol: Document 11/08/20 12:36 [facility] (Rec: 11/08/20 14:36 [facility] [id number]) OT [id number] Comments OT Self-Feeding Comments Pt able eat a cookie independently. OT ADL-Grooming General Evaluation Grooming Ability Standby Assistance Comments OT Grooming Comments Pt able to use a wash cloth to wash her hands off. OT ADL-Oral Care Comments Oral Care Comments Not performed OT ADL-Dressing General Eval Lower Body Dressing Ability Maximum Assistance Areas Needing Assistance Socks Comments OT Dressing Comments Initiated education of incorporating back precautions for ADl needs. OT ADL-Toileting General Evaluation Toileting Ability Standby Assistance,Moderate Assistance Areas Needing Assistance Manage Clothing,Perform Perineal Hygiene Comments OT Toileting Comments Pt able to wipe from the front after urinating and keeping her back flat while bending at her hips. However, when having pt try to wipe from the back, pt tends to twist and turn. To go over more education with pt and pt focus on just going back to bed. OT ADL-Bathing Comments OT Bathing Comments NOt at this time. M5 OT- IP IADL's Start: 11/08/20 13:59 Freq: Status: Active Protocol: Document 11/08/20 12:36 [facility] (Rec: 11/08/20 14:36 [facility] [id number]) OT-Instrumental Activities of Daily Living Deficits IADL Deficits Identified Deficits Home Safety Awareness Awareness of Need for Assistance at Home Decreased Awareness Ability to Problem Solve Emergency Unable to Problem Solve Situations Home Safety Comments Pt's assist for all IADl needs prior as he states pt has memory and thinking issues prior. Medication Management Medication Management Caregiver Administers Money Management Money Management Caregiver Provides Assistance Meal Preparation Meal Preparation Caregiver Provides Assist Cut Off Sawyer Log Cut Off Sawyer Log Caregiver Provides Assist M6 OT- IP Functional Cognition Start: 11/08/20 13:59 Freq: Status: Active Protocol: Document 11/08/20 12:36 [facility] (Rec: 11/08/20 14:36 [facility] [id number]) Cognitive Factors Limiting Selfcare Function Cognitive Ability Level of Alertness Alert Patient Orientation Name,Situation Attention Span Ability Capable of Focused Attention, Capable of Sustained Attention Ability to Follow Commands Able to Follow One Step Commands with Increased Time, Able to Follow One Step Commands with Repetition Memory Description Short Term Impaired,Working Impaired Safety Awareness Underestimates Need for Assistance Problem Solving Ability Unable to Identify Errors, Needs Assist to Identify Solutions Cognitive Comments Cognitive Assessment Comments Pt needing step by step commands and also a little impulsive. Pt needing reminders for back precautions . OT- Vision and Hearing OT- Hearing Assessment OT- Hearing Assessment WFL M7 OT- IP Mobility and Balance Start: 11/08/20 13:59 Freq: Status: Active Protocol: Document 11/08/20 12:36 [facility] (Rec: 11/08/20 14:36 [facility] [id number]) OT- Bed Mobility Assessment Sit to Supine Sit to Supine Assist Maximum Assistance,1 Person Assistance OT-Transfer Assessment Sit to and From Stand Sit to and from Stand Moderate Assistance,1 Person Assistance Transfers Transfer Ability Minimal Assistance,Moderate Assistance,1 Person Assistance Technique Transfer Destination Bed,Toilet Transfer Technique Stand Step Pivot Devices Transfer Assistive Devices Gait Belt,Front Wheeled Walker Comments Mobility Comments Pt's able to assist with MAX A x1 back to bed and pt needing continuous cueing for sequencing. Sit to stand MODA X 1 and pt tends to twist and lean posteriorly. MIN/MOD x 1 with FWW to get back to the bed. OT- Balance Assessment Sitting Balance and Reactions Static Sitting Balance Ability Good Standing Balance and Reactions Static Standing Balance Ability Fair M8 OT- IP Objective Assessments Start: 11/08/20 13:59 Freq: Status: Active Protocol: Document 11/08/20 12:36 [facility] (Rec: 11/08/20 14:36 [facility] [id number]) OT Gross Range of Motion Upper Extremity Range of Motion Assessment Within Functional Limits OT-Muscle Tone Assessment Muscle Tone WNL Yes M9 OT- IP Assessment and Plan Start: 11/08/20 13:59 Freq: Status: Active Protocol: Document 11/08/20 12:36 [facility] (Rec: 11/08/20 14:36 [facility] [id number]) OT Summary Assessment and Plan Potential Rehabilitation Potential Good Analytic Complexity at Evaluation Low Summary OT Impairments Pain,Balance,Functional Cognition,Functional Mobility, Grooming,Dressing,Toileting, Bathing,Toilet Transfers, Shower Transfers,Activity Tolerance Progress Towards Goals Slow Progress due to Pain,Slow Progress due to Activity Tolerance,Slow Progress due to Cognition Assessment Summary Pt is low complexity and main barriers are pain, having difficulty to recall and incorporate back precautions and will need extensive assist for bed mobility and ADl needs. Pt 's has been doing caregiver training with PT and OT today and feels it would be best for pt to go to skilled rehab prior to going home. Goals Grooming Goal Independent Dressing Goal Independent Toileting Goal Independent Bathing Goal Standby Assistance Toilet Transfer Goal Independent Shower Transfer Goal Independent Patient/Caregiver Education Goal Demonstrate Post-Op Precautions,Caregiver Independent Assisting Patient Days to Meet Goals 15 Frequency of Treatment Frequency Of Treatment Once a Day Treatment Plan OT Treatment Plan ADL Training,Functional Cognition Training,Functional Mobility,Patient/Family Education,Discharge Planning Other Treatment Recommendations and Next Go over LB dressing equipment Treatment Focus with pt. Discharge Recommendations OT Discharge Recommendations SNF Rehab Home Equipment Needs Defer to SNF Transportation Needs at Discharge Wheelchair/Cabulance
--- NOTE | 2020-11-08 13:45 | PT.IPTN ---
Current Diagnoses Other secondary scoliosis, lumbar region (11/06/20) Spondylolisthesis, lumbar region (11/06/20) Spinal stenosis, lumbar region without neurogenic claudication (11/06/20) Arthrodesis status (11/06/20) Surgery Performed Operation Date: 11/06/20 07:45 Actual Procedures p L2-3,L3-4,L4-5 TLIF,L5-S1 lumbar HWR,exploration of fusion,repeat laminectomy,reinsertion of hardware(Not Applicable) - Dirk Enciso MD Physical Therapy Treatment Note M2 PT-IP Current Condition Start: 11/07/20 12:21 Freq: NEEDED Status: Active Protocol: Document 11/07/20 10:40 [facility] (Rec: 11/07/20 12:34 AB [id number]) Physical Therapy Current Condition Current Condition Evaluation Date 11/07/20 Treatment Diagnosis s/p L3-S1 fusion; difficulty in walking Onset Date 11/06/20 Precautions Lumbar Precautions Log Roll,No Twisting,Limit Bending,Lifting Restriction of 10 lbs,Gait Belt above Incisional Area Other Precautions falls M3 PT-IP Subjective Start: 11/07/20 12:21 Freq: NEEDED Status: Active Protocol: Document 11/08/20 13:45 [facility] (Rec: 11/08/20 15:46 AB [id number]) Subjective Physical Therapy Visit Type Type Treatment Note Visit Start Time 13:45 Visit Stop Time 14:20 Total Visit Minutes 35 Number of PAINT FORMULATOR Visits 0 Physical Therapy Visit Comments Patient Comments spouse in room with pt Therapy Pain Assessment Pain When Pain Assessed At Rest Pain Present Pain Present Pain Reported Location Back Scale Used pain scale not stated M4 PT-IP Mobility and Gait Start: 11/07/20 12:21 Freq: NEEDED Status: Active Protocol: Document 11/08/20 13:45 [facility] (Rec: 11/08/20 15:46 [facility] [id number]) PT-Bed Mobility Assessment Rolling Type of Rolling Log Rolling Level of Assist Moderate Assistance,Maximal Assistance,1 Person Assistance PT-Transfer Assessment Sit to and From Stand Sit to and from Stand Moderate Assistance,1 Person Assistance,Use of Upper Extremities Equipment Transfer Assistive Device Gait Belt,Front Wheeled Walker Orthotic/Prosthetic Devices or Brace: No Transfers Transfer Destination Chair Transfer Technique ambulated using FWW Transfer Ability Level of Assist Minimal Assistance,1 Person Assistance,Use of Upper Extremities Comments Mobility Comments pt supine in bed. spouse in room. caregiver training conducted. pt completed supine to sit log roll x 2 attempts requiring mod to max a and cues. pt continues to require instructions from PT on how to instruct and assist pt. pt completed sit to stand from EOB x 2 reps mod A and cues. spouse initially positioned in front of pt to assist. reminded pt on how to assist pt. spouse without carryover from the morning's caregiver training. ambulated in room to the chair using FWW min A. pt agreed to ambulate in the hallway min A using FWW ~ 125 ft and completed with initially spouse assisting only but PT has to assist towards the end as well for safety providing mod A with increase unsteadiness and pt stated that she feels her LE trobbing with pain. pt agreed to sit up on chair. positioned on chair. call light and table placed within reach. chair alarm set up. Left pt with spouse in room. Gait Assessment Gait Gait Assistance Required: Minimum Assistance,Moderate Assistance Distance (Feet) 125 Able to Maintain Weight Bearing Status Yes During Gait Assistive Devices Assistive Device Front Wheeled Walker Orthotic/Prosthetic Devices or Brace: No Gait Deviations General Gait Pattern Antalgic,Decreased Stride Length,Decreased Feet Clearance Factors Limiting Gait Function Factors Limiting Gait Function Decreased Activity Tolerance, Decreased Strength,Difficulty Following Directions,Limited Range of Motion,Pain,Poor Balance,Poor Safety Awareness M5 PT-IP Objective Assessments Start: 11/07/20 12:21 Freq: NEEDED Status: Active Protocol: Document 11/07/20 10:40 [facility] (Rec: 11/07/20 12:34 AB [id number]) Orientation Orientation/Cognition Level of Alertness Alert Orientation Name,Place,Situation Safety Awareness Decreased Safety Awareness Memory Description Short Term Impaired Gross Range of Motion Lower Extremity ROM Assessment Within Functional Limits Strength Lower Extremity Strength Hip 3+/5 Knee 3+/5 Muscle Tone Muscle Tone WNL Yes M6 PT-IP Treatment Start: 11/07/20 12:21 Freq: NEEDED Status: Active Protocol: Document 11/08/20 13:45 [facility] (Rec: 11/08/20 15:46 AB [id number]) Physical Therapy Treatment Education Education Provided Precautions,Safety M7 PT-IP Assessment and Plan Start: 11/07/20 12:21 Freq: NEEDED Status: Active Protocol: Document 11/08/20 13:45 [facility] (Rec: 11/08/20 15:46 AB [id number]) PT Summary Assessment and Plan Potential Rehabilitation Potential Good Summary Impairments Pain,ROM,Strength,Balance, Coordination,Sensation,Tone, Cognition,Bed Mobility, Transfers,Gait,Activity Tolerance Progress Towards Goals Slow Progress due to Pain,Slow Progress - Other Assessment Summary pt progressing slowly but continues to require min to max A with mobility. caregiver training conducted again but spouse continues to require instructions on how to assist and cue pt. pt will require SNF rehab and spouse agreed. Goals Bed Mobility Goal Standby Assistance Transfer Goal Standby Assistance,Front Wheeled Walker Gait Goal Standby Assistance,Front Wheel Walker Gait Distance 150 Other Goals up/down 14 steps B rails SBA Days to Meet Goals 5 Frequency of Treatment Frequency Of Treatment Twice a Day Treatment Plan Physical Therapy Treatment Plan Bed Mobility Training,Transfer Training,Gait Training, Therapeutic Exercise,Balance Retraining,Post Op Education, Discharge Planning,Hot or Cold Pack,Neuromuscular Re-ed, Coordination Retraining,Manual Therapy Precautions Lumbar Precautions Log Roll,No Twisting,Limit Bending,Lifting Restriction of 10 lbs,Gait Belt above Incisional Area Recommendations To Nursing Amount of Assist Needed 1 Person Assist Discharge Recommendations PT Discharge Recommendations SNF Rehab Transportation Needs at Discharge Wheelchair/Cabulance
--- NOTE | 2020-11-08 13:45 | CM.DPNOTE ---
Addendum entered by Kassie Rodriguez 11/09/20 11:21: Priscilla Rodriguez called and I told her Pt. was accepted at [facility]. I also called [facility] and left a vm to cancel the referral. Kassie Rodriguez CM Asst. Addendum entered by Kassie Rodriguez 11/09/20 10:51: Correction for fax number [facility] [phone] Addendum entered by Kassie Rodriguez 11/08/20 14:08: [phone]. Received fax confirmation. Kassie Rodriguez CM Asst. Original Note: Faxed referral packet to [facility] at Leighann's request. Received fax confirmation. Kassie Rodriguez CM Asst.
--- NOTE | 2020-11-08 13:49 | PC.NURSE ---
AM shift report. pt alert and oriented to self and situation. Hesitant with care but completes tasks reluctantly. No IV access, provider okayed. PO medications and pain medications. Tolerating a general diet but declined breakfast and only eating a couple bites of lunch. Does not apply a number when asked for pain scale and talks in segmented statements like it hurts and it hurts a lot. Up with 1PA with walker and gait belt. Voiding great, no BM since admission. Denying constipation. Covrsite apply during NOC shift with mild shadowing to lower left dressing, dry and intact. Administered Vistaril at 0940 for pain and then Oxycodone 10mg with 2 Tylenol at 1230. [place], wearing aid to left (lost right prior to admission). Plan is to DC to SNF. in room for most of shift assisting with care.
--- NOTE | 2020-11-08 14:07 | CM.DPC ---
DCP SNF vs HH Per Ortho PA, pt continues to have some pain management issues and slower to progress and may be medically stable to d/c in the next 1-2 days. Per PT/OT, pt still with pain and not able to tolerate much activity and currently recommending SNF at d/c prior to return home. DAHLIA met bedside with pt and spouse and explained role and discussed possible need for SNF but at least having plan A and B pending pt's progress. Pt minimally participated in discussion but was agreeable if SNF needed as they have 14 stair to enter the home. SW provided the SNF Choice list and pt and spouse live in [place] and their preference for SNF would be closer to their home. Spouse states either [facility] [place] or [facility] or [facility] would be their preference for now. SW discussed Medicare coverage of SNF and their services. Spouse agreeable with referral to be sent to the above SNF's. MADI Fernando kindly faxed referral to [facility], [facility] [place], and [facility]. SW called [facility] and left [facility] with new referral. SW spoke to admissions at [facility] and they will review and receiving the faxed referral now, although they are higher census currently in their SNF. SW spoke to admissions at [place] and they will review and also have a higher census right now. PASRR completed. Plan: SW to follow closely for [facility] [place], [facility], and [place] to review for possible SNF placement when medically stable. LEIGH ANN Reddy
--- NOTE | 2020-11-08 15:30 | DIET.PN ---
Dietary Progress Note Assessment: 70y F admitted after significant spinal surgery for chronic back pain and worsening lumbar radiculopathy referred to nutrition for poor appetite and tooth loss. Pt with cognitive issues, spouse not in room when RD visited. Per nursing, pt able to respond simple answers but not able to participate in rating on pain scale. When asked why she didn't have appetite, pt responded, I hurt. Per chart review of MNA, reports between 2-6# weight loss over past 3mo (non-severe) with moderate decrease in appetite. IH has no previous weight hx on file. Pts POs this hospitalization have been 0%, 100%, 10%, respectively. HT: 172.7cm WT: 83.9kg BMI: 28.1 Labs:hgb 10.1 L MNA: 11 @ risk for malnutrition Clifford: 14 Nutrition Diagnosis: reduced appetite r/t chronic back pain aeb pt reports 2-6# weight loss over 3mo (non-severe), pt admitted for extensive spinal surgery c hx of spinal fusion, pt has high nutrient and protein needs for healing making her high risk for healing complications. Interventions: 1. Recc supporting pts nutrition with ONS Jimmy bid and ONS Ensure Max c lunches to supply nutrients for wound healing and protein in this patient with BMI 28. Diet Order: general EER:2,000 kcal (25kcal/kg), 100g PRO (1.2g/kg post surgical) Monitoring/Evaluations: ONS tolerance
[2020-11-08] MEDS: ATORVASTATIN 20 MG TABLET 40 MG PO (16:15)
[2020-11-08] MEDS: SENNOSIDES 8.6 MG TABLET 17.2 MG PO (20:15)
--- NOTE | 2020-11-09 01:08 | PC.NURSE ---
Patient is alert and oriented except to date. Can be forgetful and impulsive. Has flat affect. IQUGMIUT; wears hearing aid in left ear but still has difficulty. Breath sounds CTA with RA sat of 96%. HRR. Denies nausea. BT present and is passing flatus. Denies dysuria, frequency or urgency with urination. Able to turn self in bed and is up to bathroom with walker and 1 assist. Dressing to back is CDI. Complains of 8/10 pain and is too early for additional Oxycodone so medicated with Tylenol per patient request in addition to Vistaril and patient is currently asleep with FLACC of 0; refused ice pack. Continues to state she has tingling in right foot otherwise CMS is intact. Wearing bilateral foot SCD's tonight. Fall risk score is high and bed alarm is activated.
[2020-11-09] MEDS: OXYCODONE IR 5 MG TABLET 10 MG PO ×3 (01:55→08:10)
[2020-11-09 04:55] VITALS: BP 108/68; PULSE 77; RESP 15; TEMP 36.4; O2SAT 96
--- NOTE | 2020-11-09 07:39 | P.PN_ITS ---
Subjective Subjective Date Patient Seen: 11/09/20 Time Patient Seen: 07:39 Interval history: Patient states she is doing overall but notes moderate pain. At this time she denies fever, chills, nausea, chest pain, shortness of breath, or urinary retention. She reports good sensation throughout the bilateral lower extremities. However she does report mild pain in the right knee and left proximal anterolateral thigh. Exam Vital Signs (past 8 hours): - 11/08/20 23:47 11/09/20 04:55 Temperature 98.0 F 97.5 F L Pulse Rate 88 77 Respiratory Rate 15 15 Blood Pressure 116/53 L 108/68 Pulse Oximetry 96 96 Oxygen Delivery Method Room Air Oxygen Flow Rate 0 Narrative Exam Narrative: [age] year female postop day 2. Patient is resting comfortably in bed, is in no acute distress, is alert and oriented x3. Skin is warm and dry, and the skin surrounding the incision site is free of erythema, warmth, induration, or discharge. Dressing over the incision site is clean, dry, and intact. Good sensation appreciated throughout the bilateral lower extremities to light touch. Ankle dorsiflexion, plantar flexion, eversion, inversion performed bilaterally without difficulty or discomfort. DP pulses palpated bilaterally. Calves are soft and nontender, negative Homans sign. G ood capillary refill. No other signs of DVT appreciated. Const General: cooperative, healthy appearing and comfortable Resp Effort & Inspection: normal respiratory effort and able to speak in complete sentences Skin General: no rashes or lesions noted Objective Labs Result Diagrams: 11/07/20 05:49 [facility] Medical History Acid reflux Anxiety Arthritis Asthma Chest pain Depression DJD (degenerative joint disease) DVT (deep venous thrombosis) Fall from ground level (10/26/20) Hearing impaired Hypokalemia Irregular heartbeat Kidney stones Lung cancer (~2015) Osteoporosis Seizures Spinal stenosis Surgical History History of arthroplasty of left shoulder (2017) History of arthroplasty of right knee (01/11/20) History of removal of Port-a-Cath Hx of craniotomy (~2015) Hx of lumbosacral spine surgery (2002) Hx of splenectomy (2013) Social History household members: spouse and children Smoking Status: Current every day smoker alcohol intake: never Assessment & Plan Post-op Postoperative Procedures: Procedures Operation Date: 11/06/20 07:45 Actual Procedure Side Surgeon p L2-3,L3-4,L4-5 TLIF,L5-S1 lumbar HWR,exploration of fusion,repeat laminectomy,reinsertion of hardware Not Applicable Dirk Enciso MD Postoperative day: 3 Postoperative status: doing well Postoperative plan: ambulate Postoperative plan narrative: Patient is to continue working on ambulation with the assistance of a front wheeled walker with physical therapy. Current pain management regimen is to be continued. Patient will remain weight-bearing as tolerated. Plan for transfer to residential facility today pending facility acceptance. Quality VTE Deep Vein Thrombosis/Pulmonary Embolism Present on Admission: No
[2020-11-09 08:00] VITALS: BP 125/73; PULSE 81; RESP 18; TEMP 36.6; O2SAT 98
[2020-11-09] MEDS: levETIRAcetam 250 MG TABLET 500 MG PO (08:09)
[2020-11-09] MEDS: GABAPENTIN 300 MG CAPSULE PO (08:09)
[2020-11-09] MEDS: FUROSEMIDE 40 MG TABLET PO (08:09)
[2020-11-09] MEDS: DOCUSATE 100 MG CAPSULE PO (08:09)
[2020-11-09] MEDS: MULTIVITAMIN 1 TABLET 1 TAB PO (08:10)
--- NOTE | 2020-11-09 08:33 | CM.DPC ---
Addendum entered by Abbey Shipman LPN 11/09/20 13:56: ANDREINA Domingo arrived as planned. All was in place for the snf dc. Final d/c snf order specifics were faxed to Anitra. COVID negative test was received and faxed. Pt's took her by family car as per plan at 1330. Addendum entered by Abbey Shipman LPN 11/09/20 10:51: Met now with pt's Aquiles, in room while pt up finishing PT session. He says he is very comfortable providing transport to [facility]. He has left now to get their 2nd car which is a better size for the transport. He also provides a copy of pt's vaccine card: fully vaccinated with J&J 09/29/20. Have spoken now with Anitra and faxed her the PAS[facility], vaccine card and ANDREINA Domingo's progress noted: fax: confirmed with Anitra as [phone]. MARK Arriola is obtaining updated COVID test as per Anitra's request. P: is now for pt to leave this afternoon: no later that 1500, earlier if possible. still have not heard back from ANDREINA Domingo and will need completed snf orders before pt leaves. Original Note: DCP: continued: Case received, EMR reviewed as well as updated hand-off from VTkatherine Lawton/11/08. [facility] has accepted pt for admission. Have now left a vm for admissions/Anitra who is not expected in until 0900: office line (no cell): [phone]. Checked in with pt who agrees the plan is snf and is updated on the accepting facility. She says I am in so much pain, this is awful. Ortho ANDREINA Domingo was here earlier, it is unclear if he met with pt but he notes that he anticipates a d/c today if a snf has accepted her. Have left a message for him requesting update when the snf orders might be in place. IMM #2 is presented to pt. Checked on transport. [facility] does not provide this service. OT/PT both say pt should be able to be helped into a family car and helped out at the snf. Will call now.vm left. Have also left vm with pt's daughter Latonia as DCplanner Gabriela indicates that she is the point of contact. MARK Arriola, caring for pt today, is updated.
--- NOTE | 2020-11-09 10:27 | PT.IPTN ---
Current Diagnoses Other secondary scoliosis, lumbar region (11/06/20) Spondylolisthesis, lumbar region (11/06/20) Spinal stenosis, lumbar region without neurogenic claudication (11/06/20) Arthrodesis status (11/06/20) Surgery Performed Operation Date: 11/06/20 07:45 Actual Procedures p L2-3,L3-4,L4-5 TLIF,L5-S1 lumbar HWR,exploration of fusion,repeat laminectomy,reinsertion of hardware(Not Applicable) - Dirk Enciso MD Physical Therapy Treatment Note M2 PT-IP Current Condition Start: 11/07/20 12:21 Freq: NEEDED Status: Active Protocol: Document 11/07/20 10:40 AB (Rec: 11/07/20 12:34 AB [id number]) Physical Therapy Current Condition Current Condition Evaluation Date 11/07/20 Treatment Diagnosis s/p L3-S1 fusion; difficulty in walking Onset Date 11/06/20 Precautions Lumbar Precautions Log Roll,No Twisting,Limit Bending,Lifting Restriction of 10 lbs,Gait Belt above Incisional Area Other Precautions falls M3 PT-IP Subjective Start: 11/07/20 12:21 Freq: NEEDED Status: Active Protocol: Document 11/09/20 10:28 CLB (Rec: 11/09/20 12:54 CLB [id number]) Subjective Physical Therapy Visit Type Type Treatment Note Visit Start Time 10:28 Visit Stop Time 10:42 Total Visit Minutes 14 Notes present leaving at end of treat to swap out cars for better transfer for pt. Number of PROOF CARRIER Visits 1 Physical Therapy Visit Comments Patient Comments Pt needing to use BR Therapy Pain Assessment Pain When Pain Assessed At Rest Pain Present Pain Present Pain Reported Location Back Intensity 10 Pain Management Techniques Distraction,Modification of Treatment,Re-positioning, Timing of Activity with Medications M4 PT-IP Mobility and Gait Start: 11/07/20 12:21 Freq: NEEDED Status: Active Protocol: Document 11/09/20 10:28 CLB (Rec: 11/09/20 12:54 CLB [id number]) PT-Bed Mobility Assessment Rolling Type of Rolling Log Rolling Level of Assist Moderate Assistance,Maximal Assistance,1 Person Assistance Supine to Sit Supine to Sit Moderate Assistance,1 Person Assistance,Bedrails Sit to Supine Sit to Supine Minimal Assistance,1 Person Assistance PT-Transfer Assessment Sit to and From Stand Sit to and from Stand Minimal Assistance,1 Person Assistance,Use of Upper Extremities Equipment Transfer Assistive Device Gait Belt,Front Wheeled Walker Orthotic/Prosthetic Devices or Brace: No Transfers Transfer Destination Bed,Toilet Transfer Technique ambulated using FWW Transfer Ability Level of Assist Contact Guard Assistance,1 Person Assistance,Use of Upper Extremities Comments Mobility Comments Pt has difficulty following directions requiring Max cues for sequencing bed mobility. Pt unable to recall back precautions. Pt ambulated to BR requiring Min A for stand<> sit and use of wall rail. Pt required cues for staying inside walker while at sink and to not twist while reaching to towel. Pt refused ambulation in [place]clure wanting to go back to bed. Pt returned to bed requiring Mod A and cues for sequencing. Left pt in bed with all needs within reach and bed alarm on. Gait Assessment Gait Gait Assistance Required: Contact Guard Assist,1 Person Assist Distance (Feet) 40 Able to Maintain Weight Bearing Status Yes During Gait Assistive Devices Assistive Device Gait Belt,Front Wheeled Walker Orthotic/Prosthetic Devices or Brace: No Gait Deviations General Gait Pattern Antalgic,Decreased Stride Length,Decreased Feet Clearance Factors Limiting Gait Function Factors Limiting Gait Function Decreased Activity Tolerance, Decreased Strength,Difficulty Following Directions,Limited Range of Motion,Pain,Poor Balance,Poor Safety Awareness Comments Gait Comments pls refer to mobility section for details M5 PT-IP Objective Assessments Start: 11/07/20 12:21 Freq: NEEDED Status: Active Protocol: Document 11/07/20 10:40 AB (Rec: 11/07/20 12:34 AB [id number]) Orientation Orientation/Cognition Level of Alertness Alert Orientation Name,Place,Situation Safety Awareness Decreased Safety Awareness Memory Description Short Term Impaired Gross Range of Motion Lower Extremity ROM Assessment Within Functional Limits Strength Lower Extremity Strength Hip 3+/5 Knee 3+/5 Muscle Tone Muscle Tone WNL Yes M6 PT-IP Treatment Start: 11/07/20 12:21 Freq: NEEDED Status: Active Protocol: Document 11/08/20 13:45 AB (Rec: 11/08/20 15:46 AB [id number]) Physical Therapy Treatment Education Education Provided Precautions,Safety M7 PT-IP Assessment and Plan Start: 11/07/20 12:21 Freq: NEEDED Status: Active Protocol: Document 11/09/20 10:28 CLB (Rec: 11/09/20 12:54 CLB [id number]) PT Summary Assessment and Plan Potential Rehabilitation Potential Good Summary Impairments Pain,ROM,Strength,Balance, Coordination,Sensation,Tone, Cognition,Bed Mobility, Transfers,Gait,Activity Tolerance Progress Towards Goals Slow Progress due to Pain,Slow Progress - Other Assessment Summary Pt requires Min-Mod A for bed mobility and sit<>stand and CGA for gait and standing balance at sink. Pt requires cues to prevent twisting during pericare and at sink while washing her hands. Pt will benefit from SNF rehab. Goals Bed Mobility Goal Standby Assistance Transfer Goal Standby Assistance,Front Wheeled Walker Gait Goal Standby Assistance,Front Wheel Walker Gait Distance 150 Other Goals up/down 14 steps B rails SBA Days to Meet Goals 5 Frequency of Treatment Frequency Of Treatment Twice a Day Treatment Plan Physical Therapy Treatment Plan Bed Mobility Training,Transfer Training,Gait Training, Therapeutic Exercise,Balance Retraining,Post Op Education, Discharge Planning,Hot or Cold Pack,Neuromuscular Re-ed, Coordination Retraining,Manual Therapy Precautions Lumbar Precautions Log Roll,No Twisting,Limit Bending,Lifting Restriction of 10 lbs,Gait Belt above Incisional Area Recommendations To Nursing Amount of Assist Needed 1 Person Assist Discharge Recommendations PT Discharge Recommendations SNF Rehab Transportation Needs at Discharge Private Vehicle
--- NOTE | 2020-11-09 11:37 | P.DS_ITS ---
History of Present Illness History of Present Illness Date Patient Seen: 11/09/20 Time Patient Seen: 11:37 Chief complaint: INPT Narrative: Patient has been having chronic back pain and worsening lumbar radiculopathy. Patient had previously performed L5-S1 fusion surgery with retained hardware. Patient failed multiple conservative management with worsening pain weakness and numbness in her lower extremity. Patient has been having difficulty performing activity of daily living. After discussing risks benefits of treatment options, patient elected proceed with surgery. Discharge Providers Provider Date of admission: 11/06/20 09:26 Discharge Date: 11/09/20 Primary care physician: Doctor David MD Consults: 11/06/20 07:13 Consult to Respiratory Therapy Evaluate & Treat Comment: Physician Instructions: Evaluate and treat 11/06/20 07:31 Consult to Respiratory Therapy Evaluate & Treat Comment: Physician Instructions: Evaluate and treat 11/06/20 14:08 Consult to Dietitian, Adult Routine Comment: Reason For Exam: poor appetite, tooth loss 11/06/20 15:58 Consult to Occupational Therapy Evaluate & Treat Comment: Physician Instructions: Evaluate and treat Consult to Physical Therapy Evaluate & Treat Comment: Physician Instructions: Evaluate and Treat Discharge provider: Jose L Kate PA-C Summary Hospital Course Discharge Diagnosis: L3-4, L4-5, L5-S1 spinal stenosis History of L5-S1 fusion with instrumentation Lumbar scoliosis Status post L3-4, L4-5 posterolateral and posterior interbody fusion, L3-4, L4-5 posterior interbody cage placement, L5-S1 posterior non-segmental instrumentation removal, L5-S1 revision laminectomy with exploration of fusion, L3-4, L4-5, L5-S1 posterior segmental instrumentation with pedicle screw placement, L5-S1 posterolatearl fusion, [place] of bone marrow from iliac crest through a separate incision, Utilization of microsurgical technique and operating microscope Hospital Course: Patient was admitted to the hospital following the above-listed procedure for the above-listed diagnosis. Following the procedure the patient has been convalescing appropriately in her pain has been managed with her current pain management regimen. Dressing over the incision site has remained intact and has been changed as needed as it has become damaged or soiled. Patient has remained weight-bearing as tolerated with the assistance of a front wheeled walker. She has successfully worked on ambulation with physical therapy during her stay. Throughout the course of her stay in the hospital the patient has denied fever, chills, nausea, chest pain, shortness of breath, or urinary retention. Patient has been slow to progress with physical therapy however. Status at Discharge Cognitive/behavioral status at discharge: oriented Functional status at discharge: uses cane/walker Overall status at discharge: patient is progressing back to baseline Exam Vital Signs (past 8 hours): - 11/09/20 04:55 11/09/20 08:00 Temperature 97.5 F L 97.8 F Pulse Rate 77 81 Respiratory Rate 15 18 Blood Pressure 108/68 125/73 Pulse Oximetry 96 98 Oxygen Delivery Method Room Air Oxygen Flow Rate 0 Narrative Exam Narrative: [age] year female postop day 2. Patient is resting comfortably in bed, is in no acute distress, is alert and oriented x3. Skin is warm and dry, and the skin surrounding the incision site is free of erythema, warmth, induration, or discharge. Dressing over the incision site is clean, dry, and intact. Good sensation appreciated throughout the bilateral lower extremities to light touch. Ankle dorsiflexion, plantar flexion, eversion, inversion performed bilaterally without difficulty or discomfort. DP pulses palpated bilaterally. Calves are soft and nontender, negative Homans sign. Good capillary refill. No other signs of DVT appreciated. Const General: cooperative, healthy appearing and comfortable Resp Effort & Inspection: normal respiratory effort and able to speak in complete sentences Skin General: no rashes or lesions noted Objective Labs Result Diagrams: 11/07/20 05:49 [facility] Medical History Acid reflux Anxiety Arthritis Asthma Chest pain Depression DJD (degenerative joint disease) DVT (deep venous thrombosis) Fall from ground level (10/26/20) Hearing impaired Hypokalemia Irregular heartbeat Kidney stones Lung cancer (~2015) Osteoporosis Seizures Spinal stenosis Surgical History History of arthroplasty of left shoulder (2018) History of arthroplasty of right knee (01/11/20) History of removal of Port-a-Cath Hx of craniotomy (~2015) Hx of lumbosacral spine surgery (2002) Hx of splenectomy (2013) Social History household members: spouse and children Smoking Status: Current every day smoker alcohol intake: never Discharge Assessment & Plan Assessment and Plan Assessment: Patient is doing well and is stable. Plan of Treatment: Patient is to continue physical therapy and occupational therapy at group home facility. First postoperative visit in clinic is scheduled for 2 weeks following discharge. Current pain management regimen is to be continued. Patient is to remain weight-bearing as tolerated with the assistance of a front wheel walker. She is to avoid bending, twisting, or lifting in excess of 10 lb. Dressing over the incision site can be changed as needed if it becomes damaged or soiled. Avoid placing topical ointments over the incision site or soaking the incision site. Patient is to contact clinic with any concerns or questions. Any signs of increased redness, swelling, warmth, pain, or discharge from around the incision site should be reported to the clinic. Discharge Plan Discharge Plan Patient Disposition: SNF Other facility: [facility] [place] [facility] Provider Discharge Comment: Patient cleared for transfer pending group home facility acceptance. Discharge orders & Medications Prescriptions: New oxycodone 5 mg Tablet 10 mg PO Q3HR PRN (Reason: Pain, Severe (7-10)) Qty: 42 RF: 0 Continued furosemide 40 mg Tablet 40 mg PO QAM RF: 0 atorvastatin 40 mg Tablet 40 mg PO QPM RF: 0 levetiracetam [Keppra] 500 mg Tablet 500 mg PO BID RF: 0 alendronate 70 mg Tablet 70 mg PO QWEEK RF: 0 gabapentin 300 mg Capsule 300 mg PO DAILY RF: 0 multivitamin Capsule 1 cap PO DAILY RF: 0 sertraline 50 mg Tablet 50 mg PO QNOON RF: 0 acetaminophen 500 mg Capsule 1,000 mg PO Q6H PRN (Reason: Pain) RF: 0 cyclobenzaprine 5 mg Tablet 5 mg PO BID RF: 0 acetylcysteine 600 mg Capsule 600 mg PO BID RF: 0 alpha lipoic acid 600 mg Capsule 600 mg PO DAILY RF: 0 tramadol 50 mg Tablet 50 mg PO BID Qty: 42 RF: 0 Follow up/Referrals: Dirk Enciso MD [Physician] - (11/16 @ 1:00W/Dr Enciso @ [facility] 12/28 @ 1:00 w/Dr Enciso @ [facility] ) David,MD Mai [Primary Care Provider] - Diet/Activity/Treatments Diet: Regular Food texture: Regular Activity: Weight-bearing as tolerated with the assistance of front wheeled walker. Avoid bending, twisting, or lifting in excess of 10 lb. Skin/Wound/Dressing Care Report to your healthcare provider any signs of infection, such as:: chills, fever, night sweats, increased pain, unusual drainage and unusual redness Dressing: Dressing over the incision site can be changed as needed if it becomes damaged or soiled. Other wound treatment: Avoid placing topical ointments over the incision site. Avoid soaking the incision site. Special Rehabilitation Services Reason for rehabilitation: Post-operative therapy Rehab type: Physical therapy and Occupational therapy Visit Report/Discharge Packet Instructions: DI for Prescription Opioid Use, DI for Transforaminal Lumbar Interbody Fusion Stand Alone Forms: Surgery Discharge Discharge Data Primary Care Provider: Miscellaneous,Doctor Quality VTE Deep Vein Thrombosis/Pulmonary Embolism Present on Admission: No
[2020-11-09 12:05] LABS: COVID19 -Nasal RAPID Negative (Negative)
--- NOTE | 2020-11-09 12:22 | CM.DPNOTE ---
Faxed signed meds/prescriptions, DC [facility] [phone]. Received fax confirmation. Kassie Rodriguez CM Asst.
[2020-11-09] MEDS: SERTRALINE 50 MG TABLET PO (12:59)
--- NOTE | 2020-11-09 13:23 | PC.NURSE ---
Addendum entered by Zeinab Schafer R.N. 11/09/20 13:51: Gave report to Kimmy at [facility] Addendum entered by Zeinab Schafer R.N. 11/09/20 13:41: Patient prepared for discharge. to transport. Directions printed for patient's travels. Patient up to wheelchair, no complaints or concerns. Left via wheelchair, aide assist Original Note: Patient resting in bed most of morning. Ambulating to restroom, SBA, FWW. C/O pain, pain medication administered. Patient has flat affect, A/O x 3, [place]. Back dressing is CDI, CMS intact, patient denies numbness or tingling.
== END 2020-11-09 13:00 | DRG 454 ==
PROVIDERS: Admitting Provider Orthopaedic Surgery Orthopaedic Surgery of the Spine; Referring Provider Orthopaedic Surgery Orthopaedic Surgery of the Spine; Visit Provider Orthopaedic Surgery Orthopaedic Surgery of the Spine
PROC: 0SG10AJ Fusion of 2 or more Lumbar Vertebral Joints with Interbody Fusion Device, Posterior Approach, Anterior Column, Open Approach (ICD-10-PCS; principal; 2020-11-06 07:45)
DX: M48.061 Spinal stenosis, lumbar region without neurogenic claudication (principal); M96.0 Pseudarthrosis after fusion or arthrodesis; T84.038A Mechanical loosening of other internal prosthetic joint, initial encounter; M41.56 Other secondary scoliosis, lumbar region; M43.16 Spondylolisthesis, lumbar region; M81.0 Age-related osteoporosis without current pathological fracture; G40.909 Epilepsy, unspecified, not intractable, without status epilepticus; F17.210 Nicotine dependence, cigarettes, uncomplicated; Z20.822 Contact with and (suspected) exposure to COVID-19; M48.07 Spinal stenosis, lumbosacral region; Z98.1 Arthrodesis status
CPT/HCPCS: 36415; 72100; 76000; 82962; 85014; 85018; 87635; 94762; 97116; 97162; 97165; 97530; 99406; C1776; C9803; C9290; J0171; J0330; J0690; J1100; J1170; J2250; J2405; J2704; J3010